=== PATIENT | male | born 1980 | race Caucasian/White ===

== ENCOUNTER 2020-08-14 12:48 | Emergency (ER) | payer OTHER, SELFPAY ==
[2020-08-14 13:00] VITALS: BP 156/77; PULSE 99; RESP 16; TEMP 36.9; O2SAT 100
--- NOTE | 2020-08-14 13:44 | ED.EAR ---
HPI - Ear Problem General Chief complaint: Ear Stated complaint: lt ear clogged Time Seen by Provider: 08/14/20 13:36 Source: patient and RN notes reviewed Mode of arrival: ambulatory Limitations: no limitations History of Present Illness HPI Narrative: Patient presents today complaining of intermittent left ear clogging x2 weeks. Denies pain or drainage. He has not tried removal since onset of symptoms. States he has had his left ear cleaned out approximately 5 years ago. MD Complaint: other (Left ear clogging) Related Data Home Medications Medication Instructions Recorded Confirmed No Home Medications 08/14/20 08/14/20 Allergies Allergy/AdvReac Type Severity Reaction Status Date / Time amoxicillin Allergy Unknown Rash Verified 08/14/20 13:01 Review of Systems Review of Systems: Narrative: CONSTITUTIONAL: Denies body aches, fever, chills, or sweats. EYES: Denies visual changes, redness, or discharge. ENT: Denies rhinorrhea, congestion, sore throat, or otalgia.+ Left ear clogging CARDIOVASCULAR: Denies chest pain, palpitations, or edema. RESPIRATORY: Denies cough or dyspnea. GASTROINTESTINAL: Denies abdominal pain, nausea, vomiting, or diarrhea. GENITOURINARY: Denies dysuria or hematuria. SKIN: Denies rash, itching, or wounds. MUSCULOSKELETAL: Denies back pain, joint pain, or myalgia. NEUROLOGIC: Denies headache, numbness, tingling, or weakness. PSYCH: Denies depression or anxiety. PMFSH Comments At time of signature, I have reviewed and agree with nursing past medical, surgical, social and family history unless otherwise noted. Please see nursing chart for further information. There is no relevant family history pertinent to the presenting complaint Exam Narrative: Exam Narrative: GENERAL: Well-appearing, well-nourished, and in no acute distress. HEAD: Normocephalic, atraumatic. EYES: EOMI. No redness or drainage. Conjunctivae normal. ENT: Mucous membranes pink and moist. Nares clear. No rhinorrhea. Right TM normal. Left TM occluded with cerumen impaction. See procedure note. Throat normal. Uvula midline. NECK: Normal AROM. Supple. No lymphadenopathy. CHEST: No respiratory distress. Clear to auscultation. HEART: Regular rate and rhythm. No murmur appreciated. Normal peripheral pulses. ABDOMEN: Soft, nontender, nondistended, normal active bowel sounds. MUSCULOSKELETAL: No bony tenderness. EXTREMITIES: Normal range of motion. No edema. SKIN: Warm, dry, no rash. Capillary refill normal. Normal skin turgor. NEURO: No focal deficits. Alert and oriented x3. Gait steady. PSYCH: Normal affect. No signs of depression or anxiety. Course Vital Signs Vital signs: Vital Signs Temperature 98.5 F 08/14/20 13:00 Pulse Rate 99 08/14/20 13:00 Respiratory Rate 16 08/14/20 13:00 Blood Pressure 156/77 H 08/14/20 13:00 Pulse Oximetry 100 08/14/20 13:00 Temperature 98.5 F 08/14/20 13:00 Pulse Rate 99 08/14/20 13:00 Respiratory Rate 16 08/14/20 13:00 Blood Pressure 156/77 H 08/14/20 13:00 Pulse Oximetry 100 08/14/20 13:00 Reviewed. Pt has been instructed to follow up with his PCP regarding his elevated blood pressure today. Procedures Ear Wax Removal Left Ear: Ear Wax Removal Date: 08/14/20 Ear Wax Removal Time: 13:47 Cerumenolytic Used: other (Hydrogen peroxide) Results: Re-examined: cerumen removed completely TM Examination: TM(s) intact, normal appearance Ear Canal Exam: atraumatic Patient Tolerated Procedure: well Complications: no problems Technique: ear canal irrigated Medical Decision Making Differential Diagnosis Differential Diagnosis: Otitis media, otitis externa, ruptured TM, serous otitis, eustachian tube dysfunction, cerumen impaction, foreign body Vital Signs Vital Signs: Vital Signs Temperature 98.5 F 08/14/20 13:00 Pulse Rate 99 08/14/20 13:00 Respiratory Rate 16 08/14/20 13:00 Blood Pre
== END 2020-08-14 14:02 | disposition home or self-care (01) ==
PROVIDERS: Emergency Provider Nurse Practitioner; PCP Family Medicine Adolescent Medicine
DX: H61.22 Impacted cerumen, left ear (principal)
CPT/HCPCS: 69209; 99202; G0463